=== PATIENT | female | born 1945 | race Caucasian/White ===

== ENCOUNTER → 2018-04-11 | Outpatient (CLI) | payer MEDICARE ==
[~2018-04-11] MED LIST: CEPH500 PO; CYCL10 PO; HYDR1TAB94 PO; OXYM.05NI; Percocet 5-3251 EACH PO; WARF2.5 PO; WARF4 PO; WARF5 PO
== END ==
LOC: LAB SHORT 15:45 → LAB 15:45
DX: R21 Rash and other nonspecific skin eruption (principal)
CPT/HCPCS: 87529; 87798

== ENCOUNTER → 2024-06-09 | Outpatient (CLI) | payer MEDICARE ==
[2024-06-09 18:20] LABS: Bacterial Vaginosis PCR Negative (NEGATIVE); Candida Group, PCR NOT DETECTED (NOT DETECT); Candida glabrata-krusei, PCR NOT DETECTED (NOT DETECT)
== END ==
LOC: LAB SHORT 14:51 → LAB 14:51
PROVIDERS: Physician Assistant Medical
DX: N94.819 Vulvodynia, unspecified (principal)
CPT/HCPCS: 81515

== ENCOUNTER → 2024-11-27 | Outpatient (CLI) | payer MEDICARE | LOC: LAB SHORT 16:45 → LAB 16:45 | DX: R82.90 Unspecified abnormal findings in urine (principal) | CPT/HCPCS: 87086 ==